=== PATIENT | female | born 1985 | race African-American/Black ===

== ENCOUNTER 2023-04-29 16:01 | Emergency (ER) | payer OTHER ==
[2023-04-29 16:08] VITALS: BP 107/61; PULSE 71; RESP 16; TEMP 97.6; BMI 28.3
[2023-04-29 17:43] LABS: BASO % 0.7 % (0-2.0); EOS % 2.9 % (0-4.5); HEMATOCRIT 36.7 % (32.4-45.2); LYMPH % 25.6 % (8-40); MCH 27.8 pg (25.7-33.7); MCHC 32.6 g/dl (32.0-36.0); MEAN CELL VOLUME 85.1 fl (80-96); MEAN PLT VOLUME 8.7 fl (7.5-11.1); NEUT % 59.8 % (42.8-82.8); PLATELET COUNT 221 10^3/uL (134-434); RBC 4.31 M/mm3 (3.60-5.2); WHITE BLOOD COUNT 4.9 K/mm3 (4.0-10.0)
[2023-04-29 18:08] LABS: POTASSIUM 3.4 mmol/L (3.5-5.1)
[2023-04-29 18:10] LABS: CALCIUM 8.8 mg/dL (8.5-10.1)
[2023-04-29 18:11] LABS: ALBUMIN 3.7 g/dl (3.4-5.0)
[2023-04-29 18:13] LABS: CREATININE 0.6 mg/dL (0.55-1.3)
[2023-04-29 18:15] LABS: BILIRUBIN,TOTAL 0.6 mg/dL (0.2-1); TOT PROT 7.6 g/dl (6.4-8.2)
[2023-04-29 18:21] LABS: EPI CELLS 10 /uL (0-25.1); HYALINE CASTS 0 /uL (0-3.1); URINE APPEARANCE CLEAR; URINE BACTERIA 88 /uL (0-1359); URINE BILIRUBIN NEGATIVE (NEGATIVE); URINE COLOR YELLOW; URINE GLUCOSE (UA) NEGATIVE (NEGATIVE); URINE KETONE NEGATIVE (NEGATIVE); URINE LEUK ESTERASE NEGATIVE (NEGATIVE); URINE NITRITE NEGATIVE (NEGATIVE); URINE PROTEIN NEGATIVE (NEGATIVE); URINE RBC 3120 /uL (0-23.9); URINE UROBILINOGEN 0.2 mg/dL (0.2-1.0); URINE WBC 19 /uL (0-25.8)
[2023-04-29] MEDS ORDERED: ACETAMINOPHEN 500 MG TABLET (FP) PO ONE (20:26)
[2023-04-29] MEDS ORDERED: ACETAMINOPHEN 500 MG TABLET (FP) ONE (20:29)
== END 2023-04-29 20:30 | disposition home or self-care (01) ==
LOC: JERFT 16:01 → JER 16:01 → JERFT 20:30
DX: O20.9 Hemorrhage in early pregnancy, unspecified (principal); O26.899 Other specified pregnancy related conditions, unspecified trimester; R10.2 Pelvic and perineal pain; R11.0 Nausea; Z3A.00 Weeks of gestation of pregnancy not specified
CPT/HCPCS: 36415; 76817-TC; 80053; 81003; 84702; 85025; 86850; 86900; 86901; 87086; 99284-25

== ENCOUNTER 2023-05-01 10:44 | Emergency (ER) | payer OTHER ==
[2023-05-01 10:57] VITALS: BP 105/58; PULSE 84; RESP 18; TEMP 98.7; BMI 28.3
[2023-05-01] MEDS ORDERED: ACETAMINOPHEN 500 MG TABLET (FP) PO ONE (11:48)
[2023-05-01] MEDS ORDERED: ACETAMINOPHEN 500 MG TABLET (FP) ONE (12:00)
== END 2023-05-01 12:54 | disposition home or self-care (01) ==
LOC: JERFT 10:44 → JER 10:44 → JERFT 12:54
DX: O03.9 Complete or unspecified spontaneous abortion without complication (principal)
CPT/HCPCS: 36415; 84702; 99283-25

== ENCOUNTER → 2024-09-13 | Day surgery (SDC) | payer OTHER | END | disposition home or self-care (01) | LOC: JRADIR 10:07 | PROVIDERS: ATTEND Internal Medicine Endocrinology, Diabetes & Metabolism | PROC: 0GBG3ZX Excision of Left Thyroid Gland Lobe, Percutaneous Approach, Diagnostic (ICD-10-PCS; principal; 2024-09-13) | PROC: 0GBH3ZX Excision of Right Thyroid Gland Lobe, Percutaneous Approach, Diagnostic (ICD-10-PCS; 2024-09-13) | DX: E04.2 Nontoxic multinodular goiter (principal) | CPT/HCPCS: 10005; 76942; 88173; 88305-TC ==